=== PATIENT | female | born 1990 | race Caucasian/White ===

== ENCOUNTER 2018-08-11 21:12 | Emergency (ER) | payer MEDICAID, OTHER ==
[~2018-08-11] VITALS: Ht 157.5 cm; Wt 43.0 kg
[~2018-08-11 21:12] MED LIST: HYDR-3972 PO; NO HOME MEDS
[2018-08-11 21:20] VITALS: BP 126/87
== END 2018-08-11 23:00 | disposition home or self-care (01) ==
LOC: ER 21:13
DX: S01.511A Laceration without foreign body of lip, initial encounter (principal); F15.90 Other stimulant use, unspecified, uncomplicated; F11.90 Opioid use, unspecified, uncomplicated; Z98.890 Other specified postprocedural states; W22.8XXA Striking against or struck by other objects, initial encounter; Y93.51 Activity, roller skating (inline) and skateboarding; Y92.89 Other specified places as the place of occurrence of the external cause; Y99.9 Unspecified external cause status
CPT/HCPCS: 12011; 99283

== ENCOUNTER 2018-08-28 17:01 | Emergency (ER) | payer SELFPAY ==
[~2018-08-28] VITALS: Ht 157.5 cm; Wt 47.7 kg
[2018-08-28] MEDS ORDERED: normal saline 1000ML IV soln IVB ONE ×2 (17:45)
[2018-08-28 18:55] LABS: BASOPHILS % (AUTO) 0.7 % (0-1); EOSINOPHILS # (AUTO) 0.1 X10'3 (0-0.9); EOSINOPHILS % (AUTO) 2.1 % (0-6); HCG SERUM QL NEGATIVE; HEMATOCRIT 31.2 % (35.0-45.0); HEMOGLOBIN 10.2 g/dl (12.0-16.0); LYMPHOCYTES # (AUTO) 1.5 X10'3 (1.1-4.8); LYMPHOCYTES % (AUTO) 21.8 % (21-51); MEAN CORPUSCULAR HEMOGLOBIN 27.5 PG (27.0-31.0); MEAN CORPUSCULAR HGB CONC 32.6 % (33.0-36.5); MEAN CORPUSCULAR VOLUME 84.5 FL (78-98); MEAN PLATELET VOLUME 7.9 FL (7.4-10.4); MONOCYTES # (AUTO) 0.6 X10'3 (0-0.9); MONOCYTES % (AUTO) 8.1 % (2-12); NEUTROPHILS # (AUTO) 4.7 X10'3 (1.8-7.7); NEUTROPHILS % (AUTO) 67.3 % (42-75); PLATELET COUNT 300 X10'3 (140-440); RED CELL DISTRIBUTION WIDTH 20.1 % (11.5-14.5); WHITE BLOOD COUNT 6.9 X10'3 (4.5-11.0)
[2018-08-28 18:57] LABS: ALANINE AMINOTRANSFERASE 40 U/L (12-78); ALBUMIN 2.8 G/DL (3.4-5.0); ALBUMIN/GLOBULIN RATIO 0.9 (1.1-1.5); ALKALINE PHOSPHATASE 56 IU/L (46-116); ANION GAP 8 (8-16); ASPARTATE AMINO TRANSFERASE 35 U/L (10-37); BILIRUBIN,TOTAL 0.2 MG/DL (0.1-1.0); BLOOD UREA NITROGEN 8 MG/DL (7-18); BUN/CREATININE RATIO 11.4 (6.6-38.0); CHLORIDE 109 MMOL/L (99-107); ETHANOL 0.147 GM/DL (0.0-0.010); GLUCOSE 76 MG/DL (70-104); POTASSIUM 3.2 MMOL/L (3.5-5.1); SODIUM 143 MMOL/L (135-145); TOTAL CARBON DIOXIDE 25.7 MMOL/L (24-32); TOTAL PROTEIN 5.8 G/DL (6.4-8.2); eGFR > 90 ML/MIN
[2018-08-28 18:59] LABS: URINE AMPHETAMINE SCREEN POSITIVE (Neg); URINE BARBITUATE SCREEN NEGATIVE (Neg); URINE BENZODIAZEPINES SCREEN NEGATIVE (Neg); URINE CANNABINOID SCREEN NEGATIVE (Neg); URINE COCAINE SCREEN NEGATIVE (Neg); URINE METHADONE SCREEN NEGATIVE (Neg); URINE OPIATE SCREEN POSITIVE (Neg); URINE PHENCYCLIDINE SCREEN NEGATIVE (Neg)
[2018-08-28 19:33] VITALS: BP 113/75
== END 2018-08-28 20:55 | disposition home or self-care (01) ==
LOC: ER 17:01
DX: F11.929 Opioid use, unspecified with intoxication, unspecified (principal); F15.929 Other stimulant use, unspecified with intoxication, unspecified; F17.200 Nicotine dependence, unspecified, uncomplicated; Z98.890 Other specified postprocedural states
CPT/HCPCS: 36415; 80053; 80305; 80320; 84703; 85025; 99284

== ENCOUNTER 2020-09-21 14:30 | Emergency (ER) | payer MEDICAID ==
[~2020-09-21] VITALS: Ht 157.5 cm; Wt 47.5 kg
[2020-09-21 14:58] VITALS: BP 117/73
[2020-09-22] MEDS ORDERED: HYDR-3686 PO (13:29)
== END 2020-09-21 17:33 | disposition left against medical advice (07) ==
LOC: ER 14:31
DX: F41.9 Anxiety disorder, unspecified (principal); Z53.21 Procedure and treatment not carried out due to patient leaving prior to being seen by health care provider

== ENCOUNTER 2020-09-22 11:29 | Emergency (ER) | payer MEDICAID ==
[~2020-09-22] VITALS: Ht 157.5 cm; Wt 47.0 kg
[2020-09-22 11:44] VITALS: BP 122/82
--- NOTE | 2020-09-22 12:58 | NUR ---
Pt had her child taken away from her. Pt states she is very anxious due to the hoops she needs to go through to get her child back. Pt denies any drug use. Pt states that she is going to be entering a rehab soon.
[2020-09-22] MEDS ORDERED: LORazepam 1 MG tablet PO ONE (13:25)
[2020-09-22] MEDS ORDERED: HYDR-3686 PO (13:29)
== END 2020-09-22 13:46 | disposition home or self-care (01) ==
LOC: ER 11:30
DX: F41.9 Anxiety disorder, unspecified (principal); Z98.890 Other specified postprocedural states
CPT/HCPCS: 99283

== ENCOUNTER 2020-11-22 10:17 | Emergency (ER) | payer MEDICAID, OTHER ==
--- NOTE | 2020-11-22 10:26 | NUR ---
pt walked out, refused triage, stated she just needed to use the restroom
== END 2020-11-22 10:28 | disposition left against medical advice (07) ==
LOC: ER 10:17
DX: K08.89 Other specified disorders of teeth and supporting structures (principal); Z53.21 Procedure and treatment not carried out due to patient leaving prior to being seen by health care provider

== ENCOUNTER 2023-01-11 15:40 | Emergency (ER) | payer MEDICAID ==
[~2023-01-11] VITALS: Ht 157.5 cm; Wt 51.4 kg
[2023-01-11 17:35] VITALS: BP 118/66
[2023-01-11] MEDS ORDERED: ibuprofen 200mg tablet PO ONE (21:05)
[2023-01-11] MEDS ORDERED: sulfamethoxazole/trimethoprim DS (800/160mg) tablet PO ONE (21:05)
[2023-01-11] MEDS ORDERED: SULF1TAB48 PO (21:17)
[2023-01-11] MEDS ORDERED: SYRI1DIS MC (21:46)
== END 2023-01-11 22:19 | disposition home or self-care (01) ==
LOC: ER 15:41 → EEVIPCON 15:41 → ER 22:19
DX: L02.416 Cutaneous abscess of left lower limb (principal); F17.200 Nicotine dependence, unspecified, uncomplicated; Z79.899 Other long term (current) drug therapy
CPT/HCPCS: 99283

== ENCOUNTER 2023-06-18 18:41 | Emergency (ER) | payer MEDICAID ==
[~2023-06-18] VITALS: Ht 157.5 cm; Wt 61.4 kg
[2023-06-18 19:40] VITALS: BP 126/75; PULSE 88; RESP 14; TEMP 97.9; O2SAT 100
== END 2023-06-19 00:13 | disposition left against medical advice (07) ==
LOC: ER 18:42
DX: K04.7 Periapical abscess without sinus (principal); Z53.21 Procedure and treatment not carried out due to patient leaving prior to being seen by health care provider
CPT/HCPCS: 99281